=== PATIENT | male | born 1960 | race Caucasian/White ===

== ENCOUNTER → 2024-12-18 | Outpatient (CLI) | payer OTHER, SELFPAY ==
--- NOTE | 2024-12-18 08:30 | XR_ITS ---
Examination: MRI left wrist, without contrast Date and time of exam: December 18, 2024, 0837 hours INDICATIONS: Generalized wrist pain 5 months, stiffness swelling increased pain with lifting, joint clicking Technique: Multiple axial sagittal and coronal images of the left wrist. have been obtained with the Siemens high-resolution 1.5 Caty MRI scanner. Images obtained include T2-weighted fat-suppressed sagittal sections, TR 3500, TE 46, T2 weighted coronal fat suppressed images, TR 3050, TE 84, T2-weighted transverse fat suppressed images, TR 3260, TE 63, proton density transverse images, TR 4720 TE 46, and T1 weighted coronal images, TR 560, TE 13. Findings: Although the images are degraded by patient motion No occult fracture or bone contusion or marrow edema. Moderate narrowing radiocarpal joint Coronal image 4 suspicious for tear of the triangular fibrocartilage Flexor tendons are intact with no tendinitis Normal median nerve There is tendinitis involving the extensor pollicis brevis, extensor digitorum, extensor indicis tendons No ganglion cyst IMPRESSION: Suspicious for tear of the triangular fibrocartilage, consider follow-up MR arthrography followed by post intra-articular contrast images of the wrist Tendinitis involving extensor pollicis brevis, extensor digitorum, extensor indicis
== END | disposition home or self-care (01) ==
PROVIDERS: PCP Physician Assistant; Referring Provider Surgery; Visit Provider Surgery
DX: M94.8X8 Other specified disorders of cartilage, other site (principal); M77.8 Other enthesopathies, not elsewhere classified
CPT/HCPCS: 73221